=== PATIENT | female | born 1995 | race Caucasian/White ===

== ENCOUNTER → 2018-08-16 | Outpatient (CLI) | payer OTHER | LOC: COL.RAD 07:27 | DX: R10.32 Left lower quadrant pain (principal); Z97.5 Presence of (intrauterine) contraceptive device | CPT/HCPCS: Q9967 ==

== ENCOUNTER → 2021-07-08 | Outpatient (CLI) | payer BC | LOC: COL.RAD 07:19 | DX: Z31.41 Encounter for fertility testing (principal) | CPT/HCPCS: Q9967 ==